=== PATIENT | male | born 1965 | race African-American/Black ===

== ENCOUNTER 2018-10-17 12:10 | Inpatient (IN) | payer SELFPAY ==
[2018-10-17] MEDS ORDERED: NORMAL SALINE 1000 ML 1,000 ML IV ONE ×2 (12:27→14:16)
--- NOTE | 2018-10-17 12:28 | ER Document Report ---
ED Medical Screen (RME) - General Chief Complaint: Flu Symptoms Stated Complaint: SICK Time Seen by Provider: 10/17/18 12:26 Primary Care Provider: WENDI JASON [Primary Care Provider] - Follow up as needed TRAVEL OUTSIDE OF THE [place] IN LAST 30 DAYS: No - HPI Notes: 10/17/18 12:27 Diabetic on metformin nausea vomiting ongoing for the last 2 weeks patient is tachycardic in triage - Related Data Allergies/Adverse Reactions: No Known Allergies Allergy (Verified 10/17/18 12:12) Review of Systems - Review of Systems Gastrointestinal: Nausea, Vomiting Physical Exam - Vital signs Vitals: Temp Pulse Resp BP Pulse Ox 98.7 F 121 H 18 160/108 H 98 10/17/18 12:20 10/17/18 12:20 10/17/18 12:20 10/17/18 12:20 10/17/18 12:20 - Respiratory Respiratory status: No respiratory distress Chest status: Nontender - Cardiovascular Rhythm: Tachycardia Course - Vital Signs Vital signs: Temp Pulse Resp BP Pulse Ox 98.7 F 121 H 18 160/108 H 98 10/17/18 12:20 10/17/18 12:20 10/17/18 12:20 10/17/18 12:20 10/17/18 12:20 Doctor's Discharge - Discharge Referrals: WENDI JASON [Primary Care Provider] - Follow up as needed
[2018-10-17] MEDS ORDERED: ONDANSETRON HCL INJ/PF 4 MG/2 ML SDV IV ONE (13:21)
[2018-10-17 13:37] LABS: APPEARANCE,URINE CLEAR; BILIRUBIN,URINE NEGATIVE (NEGATIVE); COLOR,URINE STRAW; GLUCOSE, URINE >=500 mg/dL (NEGATIVE); KETONES,URINE 80 mg/dL (NEGATIVE); LEUKOCYTE ESTERASE,URINE NEGATIVE (NEGATIVE); NITRITE,URINE NEGATIVE (NEGATIVE); PROTEIN,URINE NEGATIVE (NEGATIVE); URINE SPECIFIC GRAVITY 1.027; UROBILINOGEN,URINE NEGATIVE mg/dL (<2.0)
[2018-10-17 13:49] LABS: ABSOLUTE BASOPHILS # (AUTO) 0.1 10^3/uL (0.0-0.2); ABSOLUTE LYMPHOCYTES (AUTO) 1.1 10^3/uL (0.5-4.7); ABSOLUTE MONOCYTES (AUTO) 0.5 10^3/uL (0.1-1.4); ABSOLUTE NEUT (AUTO) 6.3 10^3/uL (1.7-8.2); BASOPHILS % (AUTO) 0.9 % (0-2); EOSINOPHILS % (AUTO) 0.4 % (0-6); HEMATOCRIT 49.6 % (37.9-51.0); LYMPHOCYTES % (AUTO) 13.7 % (13-45); MEAN CORPUSCULAR HEMOGLOBIN 27.6 pg (27.0-33.4); MEAN CORPUSCULAR HGB CONC 32.3 g/dL (32.0-36.0); MEAN CORPUSCULAR VOLUME 86 fl (80-97); MONOCYTES % (AUTO) 5.8 % (3-13); PLATELET COUNT 273 10^3/uL (150-450); SEGMENTED NEUTROPHILS % (AUTO) 79.2 % (42-78); TOTAL CELLS COUNTED % (AUTO) 100 %
[2018-10-17 13:57] LABS: ALANINE AMINOTRANSFERASE 42 U/L (21-72); ALKALINE PHOSPHATASE 156 U/L (38-126); ASPARTATE AMINO TRANSFERASE 21 U/L (17-59); BILIRUBIN,DIRECT 0.2 mg/dL (0.0-0.4); BILIRUBIN,TOTAL 0.5 mg/dL (0.2-1.3); BLOOD UREA NITROGEN 28 mg/dL (7-20); LIPASE 431.8 U/L (23-300); TOTAL PROTEIN 7.8 g/dL (6.3-8.2)
[2018-10-17 14:01] LABS: CARBON DIOXIDE 18 mmol/L (22-30); CHLORIDE 93 mmol/L (98-107); SODIUM 135.8 mmol/L (137-145)
[2018-10-17 14:07] LABS: ALCOHOL < 10 mg/dL (NONE DETECTED); ANION GAP 25 (5-19)
[2018-10-17 14:14] LABS: GLUCOSE 933 mg/dL (75-110); POTASSIUM 6.9 mmol/L (3.6-5.0)
[2018-10-17] MEDS ORDERED: INSULIN REG, HUMAN 100 UNIT/ML 3 ML VIAL (PYX) IV ONE (14:16)
[2018-10-17 14:17] LABS: VENOUS BLOOD BASE EXCESS -10.9 mmol/L; VENOUS BLOOD HCO3 14.2 mmol/L (20-32); VENOUS BLOOD PCO2 30.2 mmHg (35-63); VENOUS BLOOD PH 7.29 (7.30-7.42)
--- NOTE | 2018-10-17 15:20 | ER Document Report ---
Entered by AMIRAH CARRILLO SCRIBE 10/17/18 1401 Acting as scribe for:BRENDA BELTRAN DO ED General - General Chief Complaint: Flu Symptoms Stated Complaint: SICK Time Seen by Provider: 10/17/18 12:26 Information source: Patient Notes: 53-year-old male who presents to the emergency department today with complaints of blood glucose levels reading high at home, vomiting, and diaphoresis. Patie nt states that he takes 500 mg of metformin daily. Patient states he does not take his blood sugar regularly but the last time he got a reading other than high was 3-4 weeks ago and it was 280. Patient states he has been vomiting for 3 days. Patient denies a history of CO or CVA. Patient denies any fevers, chills, confusion, chest pain, or shortness of breath. TRAVEL OUTSIDE OF THE [place] IN LAST 30 DAYS: No - Related Data Allergies/Adverse Reactions: No Known Allergies Allergy (Verified 10/17/18 12:12) Past Medical History - General Information source: Patient - Social History Smoking Status: Former Smoker - "quit x2 weeks ago" Frequency of alcohol use: Occasional Drug Abuse: Marijuana Family History: DM Patient has suicidal ideation: No Patient has homicidal ideation: No Endocrine Medical History: Reports: Hx Diabetes Mellitus Type 2 Review of Systems - Review of Systems Constitutional: See HPI, Diaphoresis, Other - elevated BGL. denies: Chills, Fever EENT: No symptoms reported Cardiovascular: denies: Chest pain Respiratory: denies: Short of breath Gastrointestinal: See HPI, Vomiting. denies: Abdominal pain Genitourinary: No symptoms reported Male Genitourinary: No symptoms reported Musculoskeletal: No symptoms reported Skin: No symptoms reported Hematologic/Lymphatic: No symptoms reported Neurological/Psychological: denies: Confusion -: Yes All other systems reviewed and negative Physical Exam - Vital signs Vitals: Temp Pulse Resp BP Pulse Ox 98.7 F 121 H 18 160/108 H 98 10/17/18 12:20 10/17/18 12:20 10/17/18 12:20 10/17/18 12:20 10/17/18 12:20 Interpretation: Hypertensive, Tachycardic - Notes Notes: PHYSICAL EXAM GENERAL: Alert, interacts well. No acute distress. HEAD: Normocephalic, atraumatic. EYES: Pupils equal, round, and reactive to light. Extraocular movements intact. ENT: Oral mucosa moist, tongue midline. NECK: Full range of motion. Supple. Trachea midline. LUNGS: Clear to auscultation bilaterally, no wheezes, rales, or rhonchi. No respiratory distress. HEART: Tachycardic, regular rhythm. No murmurs, gallops, or rubs. ABDOMEN: Soft, non-tender. Non-distended. Bowel sounds present in all 4 quadrants. No guarding, rigidity, or rebound. EXTREMITIES: Moves all 4 extremities spontaneously. No edema, radial and dorsalis pedis pulses 2/4 bilaterally. No cyanosis. NEUROLOGICAL: Alert and oriented x3. Normal speech. Did not know what confusion meant. PSYCH: Normal affect, normal mood. SKIN: Warm, dry, normal turgor. No rashes or lesions noted. Course - Re-evaluation Re-evalutation: 10/17/18 17:21 CBC unremarkable, venous blood gas is acidotic with a pH of 7.29, chemistries shows pseudohyponatremia with sodium 135.8, potassium quite elevated 6.9, there is an anion gap at 25, glucose markedly elevated at 933, lactic acid normal, calcium elevated at 11.0, lipase mildly elevated at 431, urinalysis shows greater than 500 of glucose and 80 ketones. Alcohol level is undetectable. EKG shows peaked T waves consistent with elevated potassium. Patient fits criteria for DKA. He is certainly in hyperglycemic state that will be needed to be treated with fluids as well as insulin. At present I believe his potassium is going to normalize quite well with IV insulin and hydration however internal medicine will keep an eye on this as an inpatient. There is no widening of the QRS at this time. We will hold off on giving Kayexalate at this time. Discussed the case with internal medicine Dr. Medina who accepts the patient to his service in admission status. - Vital Signs Vital signs: Temp Pulse Resp BP Pulse Ox 98.7 F 121 H 11 L 131/89 H 96 10/17/18 12:20 10/17/18 12:20 10/17/18 17:01 10/17/18 17:01 10/17/18 17:01 - Laboratory Result Diagrams: 10/17/18 12:35 10/17/18 12:35 Laboratory results interpreted by me: 10/17/18 10/17/18 10/17/18 12:35 12:35 12:35 RBC 5.80 H RDW 15.0 H Seg Neutrophils % 79.2 H VBG pH VBG pCO2 VBG HCO3 Sodium 135.8 L Potassium 6.9 H* Chloride 93 L Carbon Dioxide 18 L Anion Gap 25 H BUN 28 H Glucose 933 H* Hemoglobin A1c % Calcium 11.0 H Alkaline Phosphatase 156 H Lipase 431.8 H Urine Glucose (UA) >=500 H Urine Ketones 80 H 10/17/18 10/17/18 12:35 14:00 RBC RDW Seg Neutrophils % VBG pH 7.29 L VBG pCO2 30.2 L VBG HCO3 14.2 L Sodium Potassium Chloride Carbon Dioxide Anion Gap BUN Glucose Hemoglobin A1c % > 14.0 H Calcium Alkaline Phosphatase Lipase Urine Glucose (UA) Urine Ketones - EKG Interpretation by Me Additional EKG results interpreted by me: 10/17/18 17:23 EKG shows sinus tachycardia at a rate of 102, normal axis, normal intervals, mild diffuse ST segment elevation that I actually feels more likely related to rate than to pericarditis, peaked T waves, no T wave inversions with the exception of lead III per my interpretation. 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 Diabetes mellitus complication detail: without coma Qualified Code(s): E11.10 - Type 2 di abetes mellitus with ketoacidosis without coma Vomiting Qualifiers: Vomiting type: unspecified Vomiting Intractability: non-intractable Nausea presence: with nausea Qualified Code(s): R11.2 - Nausea with vomiting, unspecified Condition: Critical Disposition: ADMITTED INPATIENT [facility]: ICU Scribe Attestation: 10/17/18 17:23 I personally performed the services described in the documentation, reviewed and edited the documentation which was dictated to the scribe in my presence, and it accurately records my words and actions. I personally performed the services described in the documentation, reviewed and edited the documentation which was dictated to the scribe in my presence, and it accurately records my words and actions.
[2018-10-17] MEDS ORDERED: NORMAL SALINE 100 ML with INSULIN REGULAR, HUMAN 100 UNIT IV PRN ×4 (15:25→15:35)
[2018-10-17] MEDS ORDERED: ONDANSETRON HCL INJ/PF 4 MG/2 ML SDV IV PRN (15:31)
[2018-10-17] MEDS ORDERED: DEXTROSE 40% GEL 15 GM TUBE PO PRN ×4 (15:35→18:30)
[2018-10-17] MEDS ORDERED: GLUCAGON,HUMAN RECOMB 1 MG INJ IM PRN ×3 (15:35→18:30)
[2018-10-17] MEDS ORDERED: DEXTROSE 50%-WATER 25 GM/50 ML DISP.SYRIN IV PRN ×2 (15:35)
--- NOTE | 2018-10-17 15:58 | PDOC H&P ---
History of Present Illness History of Present Illness: BEATRIZ ZACARIAS is a 53 year old male who has history of diabetes and takes 500 mg metformin. Patient presents emergency room due to acute onset of generalized weakness, polydipsia, polyuria, nausea vomiting and nonspecific abdominal pain. This started about 2 weeks ago and has been progressive. He also suffered several pounds weight loss. In the emergency room his glucose was 933. PH was 7.29, anion gap 25 and bicarb is 18. Patient started on insulin drip and IV fluids. His potassium was also elevated at 6.9. Past Medical History Endocrine Medical History: Reports: Diabetes Mellitus Type 2 Past Surgical History Past Surgical History: Reports: None Social History Smoking Status: Former Smoker - "quit x2 weeks ago" Family History Family History: DM Parental Family History Reviewed: Yes Children Family History Reviewed: NA Sibling(s) Family History Reviewed.: NA Medication/Allergy Home Medications: Metformin HCl [Glucophage 500 mg Tablet] 500 mg PO BIDBS 10/17/18 Allergies/Adverse Reactions: No Known Allergies Allergy (Verified 10/17/18 12:12) Review of Systems All systems: reviewed and no additional remarkable complaints except as stated Physical Exam Vital Signs: Temp Pulse Resp BP Pulse Ox 98.7 F 121 H 15 168/100 H 97 10/17/18 12:20 10/17/18 12:20 10/17/18 15:21 10/17/18 15:21 10/17/18 15:21 Intake & Output 10/16/18 10/17/18 10/18/18 06:59 06:59 06:59 Weight 169 lb 1.513 oz General appearance: PRESENT: no acute distress, cooperative Head exam: PRESENT: atraumatic, normocephalic Eye exam: PRESENT: EOMI, PERRLA Ear exam: ABSENT: bleeding, drainage Mouth exam: PRESENT: moist, neck supple Throat exam: ABSENT: tonsillar exudate, tonsillogmegaly Neck exam: ABSENT: meningismus, tenderness Respiratory exam: PRESENT: clear to auscultation jeannine. ABSENT: accessory muscle use Cardiovascular exam: PRESENT: tachycardia. ABSENT: irregular rhythm Pulses: PRESENT: normal radial pulses GI/Abdominal exam: PRESENT: normal bowel sounds, soft Rectal exam: PRESENT: deferred Extremities exam: ABSENT: joint swelling, pedal edema Musculoskeletal exam: ABSENT: deformity Neurological exam: PRESENT: alert, awake, oriented to person, oriented to place, oriented to time, oriented to situation Focused psych exam: ABSENT: catatonic, delusional, euphoric, flight of ideas, pressured speech, psychomotor agitation Skin exam: PRESENT: dry, intact Results Laboratory Results: 10/17/18 12:35 10/17/18 12:35 10/17/18 10/17/18 10/17/18 12:35 12:35 12:35 WBC 8.0 RBC 5.80 H Hgb 16.0 Hct 49.6 MCV 86 MCH 27.6 MCHC 32.3 RDW 15.0 H Plt Count 273 Seg Neutrophils % 79.2 H Lymphocytes % 13.7 Monocytes % 5.8 Eosinophils % 0.4 Basophils % 0.9 Absolute Neutrophils 6.3 Absolute Lymphocytes 1.1 Absolute Monocytes 0.5 Absolute Eosinophils 0.0 Absolute Basophils 0.1 VBG pH Cancelled VBG pCO2 Cancelled VBG HCO3 Cancelled VBG Base Excess Cancelled Sodium 135.8 L Potassium 6.9 H* Chloride 93 L Carbon Dioxide 18 L Anion Gap 25 H BUN 28 H Creatinine 1.24 Est GFR ( Amer) > 60 Est GFR (Non-Af Amer) > 60 Glucose 933 H* Lactic Acid Calcium 11.0 H Total Bilirubin 0.5 AST 21 ALT 42 Alkaline Phosphatase 156 H Total Protein 7.8 Albumin 5.0 Lipase 431.8 H Urine Color Urine Appearance Urine pH Ur Specific [place] Urine Protein Urine Glucose (UA) Urine Ketones Urine Blood Urine Nitrite Ur Leukocyte Esterase Urine WBC (Auto) Urine RBC (Auto) 10/17/18 10/17/18 10/17/18 12:35 12:35 14:00 WBC RBC Hgb Hct MCV MCH MCHC RDW Plt Count Seg Neutrophils % Lymphocytes % Monocytes % Eosinophils % Basophils % Absolute Neutrophils Absolute Lymphocytes Absolute Monocytes Absolute Eosinophils Absolute Basophils VBG pH 7.29 L VBG pCO2 30.2 L VBG HCO3 14.2 L VBG Base Excess -10.9 Sodium Potassium Chloride Carbon Dioxide Anion Gap BUN Creatinine Est GFR ( Amer) Est GFR (Non-Af Amer) Glucose Lactic Acid 1.2 Calcium Total Bilirubin AST ALT Alkaline Phosphatase Total Protein Albumin Lipase Urine Color STRAW Urine Appearance CLEAR Urine pH 5.0 Ur Specific [place] 1.027 Urine Protein NEGATIVE Urine Glucose (UA) >=500 H Urine Ketones 80 H Urine Blood NEGATIVE Urine Nitrite NEGATIVE Ur Leukocyte Esterase NEGATIVE Urine WBC (Auto) 1 Urine RBC (Auto) 0 Assessment & Plan - Diagnosis (1) DKA (diabetic ketoacidoses) Is this a current diagnosis for this admission?: Yes Plan: Admit to ICU. IV fluid normal saline 200 mL/h. Start insulin drip. Check chemistry every 4 hours. Check glucose levels Accu-Chek every hour. A1c. (2) Sinus tachycardia Is this a current diagnosis for this admission?: Yes Plan: Likely due to dehydration and DKA. Monitor telemetry. (3) Hyperkalemia Is this a current diagnosis for this admission?: Yes Plan: Due to DKA. Monitor potassium levels every 4 hours. Admit to telemetry ICU. (4) Vomiting Is this a current diagnosis for this admission?: Yes Plan: Zofran IV as needed. Keep n.p.o. for now. - Time Time Spent with patient: 35 minutes critical care time.
[2018-10-17] MEDS: NORMAL SALINE 1000 ML 1,000 ML IV PRN ×2 (16:13→21:15)
[2018-10-17] MEDS ORDERED: MORPHINE SULFATE 10 MG/ML INJ IV PRN (16:21)
[2018-10-17] MEDS ORDERED: INSULIN, REGULAR 100 UNIT/100 ML NORMAL SALINE IV PRN ×2 (17:00)
[2018-10-17] MEDS ORDERED: DEXTROSE 40% GEL 15 GM TUBE X 2 PO PRN ×2 (17:00→18:30)
[2018-10-17] MEDS ORDERED: DEXTROSE 50%-WATER SYRINGE 12.5 GM/25 ML DOSE IV PRN ×2 (17:00→18:30)
[2018-10-17] MEDS ORDERED: DEXTROSE 50%-WATER SYRINGE 25 GM/50 ML DOSE IV PRN ×2 (17:00→18:30)
--- NOTE | 2018-10-17 17:51 | EKG REPORT ---
SEVERITY:- ABNORMAL ECG - SINUS TACHYCARDIA ST ELEVATION SUGGESTS PERICARDITIS : Confirmed by: Alejandro Hankins MD 17-Oct-2018 17:50:55
[2018-10-17] MEDS ORDERED: INSULIN GLARGINE,HUM.REC.ANLOG 1,000 UNIT/10 ML UNIT SUBCUT ONE ×2 (18:15→20:18)
[2018-10-17 18:44] LABS: ANION GAP 17 (5-19); BLOOD UREA NITROGEN 22 mg/dL (7-20); CALCIUM 10.1 mg/dL (8.4-10.2); CARBON DIOXIDE 19 mmol/L (22-30); CHLORIDE 109 mmol/L (98-107); GLUCOSE 393 mg/dL (75-110); SODIUM 145.4 mmol/L (137-145)
[2018-10-17 18:55] LABS: POTASSIUM 5.3 mmol/L (3.6-5.0)
[2018-10-17] MEDS ORDERED: INSULIN LISPRO 100 UNIT/ML 3 ML VIAL SUBCUT ONE (19:15)
[2018-10-17 22:30] LABS: ANION GAP 15 (5-19); BLOOD UREA NITROGEN 20 mg/dL (7-20); CALCIUM 10.1 mg/dL (8.4-10.2); CARBON DIOXIDE 23 mmol/L (22-30); CHLORIDE 110 mmol/L (98-107); GLUCOSE 295 mg/dL (75-110); POTASSIUM 4.8 mmol/L (3.6-5.0); SODIUM 147.5 mmol/L (137-145)
[2018-10-17] MEDS: INSULIN LISPRO 100 UNIT/ML 3 ML VIAL SUBCUT SCH (23:26)
[2018-10-17] MEDS: FAMOTIDINE INJ/PF 20 MG/2 ML SDV IV SCH (23:26)
[2018-10-18 02:19] LABS: ANION GAP 10 (5-19); BLOOD UREA NITROGEN 16 mg/dL (7-20); CALCIUM 9.3 mg/dL (8.4-10.2); CARBON DIOXIDE 23 mmol/L (22-30); CHLORIDE 115 mmol/L (98-107); GLUCOSE 221 mg/dL (75-110); POTASSIUM 4.4 mmol/L (3.6-5.0); SODIUM 148.4 mmol/L (137-145)
[2018-10-18] MEDS: NORMAL SALINE 1000 ML 1,000 ML IV PRN ×2 (02:38→15:13)
[2018-10-18] MEDS: INSULIN LISPRO 100 UNIT/ML 3 ML VIAL SUBCUT SCH ×6 (02:39→21:43)
[2018-10-18 06:37] LABS: ANION GAP 9 (5-19); BLOOD UREA NITROGEN 15 mg/dL (7-20); CALCIUM 9.2 mg/dL (8.4-10.2); CARBON DIOXIDE 23 mmol/L (22-30); CHLORIDE 114 mmol/L (98-107); GLUCOSE 214 mg/dL (75-110); POTASSIUM 4.3 mmol/L (3.6-5.0); TRIGLYCERIDES 302 mg/dL (<150)
[2018-10-18 06:47] LABS: VLDL CHOLESTEROL 60.4 mg/dL (10-31)
[2018-10-18 06:48] LABS: DIRECT LDL 160 mg/dL (<100)
[2018-10-18] MEDS: FAMOTIDINE INJ/PF 20 MG/2 ML SDV IV SCH ×2 (11:18→21:36)
[2018-10-18] MEDS: ENOXAPARIN SODIUM INJ 40 MG/0.4 ML DISP.SYRIN SUBCUT SCH (11:18)
[2018-10-18 11:59] LABS: ANION GAP 12 (5-19); BLOOD UREA NITROGEN 13 mg/dL (7-20); CALCIUM 9.6 mg/dL (8.4-10.2); CARBON DIOXIDE 21 mmol/L (22-30); CHLORIDE 108 mmol/L (98-107); GLUCOSE 355 mg/dL (75-110); POTASSIUM 4.9 mmol/L (3.6-5.0); SODIUM 141.4 mmol/L (137-145)
[2018-10-18 15:36] LABS: ANION GAP 9 (5-19); BLOOD UREA NITROGEN 16 mg/dL (7-20); CALCIUM 9.3 mg/dL (8.4-10.2); CARBON DIOXIDE 24 mmol/L (22-30); CHLORIDE 108 mmol/L (98-107); GLUCOSE 352 mg/dL (75-110); POTASSIUM 4.6 mmol/L (3.6-5.0); SODIUM 140.7 mmol/L (137-145)
[2018-10-18] MEDS ORDERED: GLUCAGON,HUMAN RECOMB 1 MG INJ IM PRN (16:50)
[2018-10-18] MEDS ORDERED: DEXTROSE 40% GEL 15 GM TUBE PO PRN ×2 (16:50)
[2018-10-18] MEDS ORDERED: DEXTROSE 50%-WATER 25 GM/50 ML DISP.SYRIN IV PRN ×2 (16:50)
[2018-10-18] MEDS ORDERED: INSULIN GLARGINE,HUM.REC.ANLOG 300 UNIT/3 ML INSULN.PEN SUBCUT SCH ×2 (18:00→22:00)
--- NOTE | 2018-10-18 20:05 | PDOC PROGRESS REPORT ---
Subjective Progress Note for:: 10/18/18 Subjective:: No acute events overnight. Patient comfortably sitting in his chair enjoying his lunch. Denying any shortness of breath, weakness, chest pain, nausea, vomiting, diarrhea or constipation. Reason For Visit: DKA Physical Exam Vital Signs: Temp Pulse Resp BP Pulse Ox 98.1 F 90 11 L 142/88 H 90 L 10/18/18 19:46 10/18/18 16:00 10/18/18 16:00 10/18/18 16:00 10/18/18 16:00 Intake & Output 10/17/18 10/18/18 10/19/18 06:59 06:59 06:59 Intake Total 4007 1940 Output Total 1570 600 Balance 2437 1340 Weight 75.4 kg General appearance: PRESENT: no acute distress, well-developed, well-nourished Head exam: PRESENT: atraumatic, normocephalic Eye exam: PRESENT: conjunctiva pink, EOMI, PERRLA. ABSENT: scleral icterus Ear exam: PRESENT: normal external ear exam Mouth exam: PRESENT: moist, tongue midline Neck exam: ABSENT: carotid bruit, JVD, lymphadenopathy, thyromegaly Respiratory exam: PRESENT: clear to auscultation jeannine. ABSENT: rales, rhonchi, wheezes Cardiovascular exam: PRESENT: RRR. ABSENT: diastolic murmur, rubs, systolic murmur Pulses: PRESENT: normal dorsalis pedis pul Vascular exam: PRESENT: normal capillary refill GI/Abdominal exam: PRESENT: normal bowel sounds, soft. ABSENT: distended, guarding, mass, organolmegaly, rebound, tenderness Rectal exam: PRESENT: deferred Extremities exam: PRESENT: full ROM. ABSENT: calf tenderness, clubbing, pedal edema Neurological exam: PRESENT: alert, awake, oriented to person, oriented to place, oriented to time, oriented to situation, CN II-XII grossly intact. ABSENT: motor sensory deficit Psychiatric exam: PRESENT: appropriate affect, normal mood. ABSENT: homicidal ideation, suicidal ideation Skin exam: PRESENT: dry, intact, warm. ABSENT: cyanosis, rash Results Laboratory Results: 10/17/18 12:35 10/18/18 15:00 10/17/18 10/18/18 10/18/18 22:00 01:56 06:08 Sodium 147.5 H 148.4 H 146.0 H Potassium 4.8 4.4 4.3 Chloride 110 H 115 H 114 H Carbon Dioxide 23 23 23 Anion Gap 15 10 9 BUN 20 16 15 Creatinine 1.07 0.78 0.77 Est GFR ( Amer) > 60 > 60 > 60 Est GFR (Non-Af Amer) > 60 > 60 > 60 Glucose 295 H 221 H 214 H Calcium 10.1 9.3 9.2 Magnesium 2.1 Triglycerides 302 H Cholesterol 353.70 H LDL Cholesterol Direct 160 H VLDL Cholesterol 60.4 H HDL Cholesterol 38 L 10/18/18 10/18/18 11:20 15:00 Sodium 141.4 140.7 Potassium 4.9 4.6 Chloride 108 H 108 H Carbon Dioxide 21 L 24 Anion Gap 12 9 BUN 13 16 Creatinine 0.80 0.98 Est GFR ( Amer) > 60 > 60 Est GFR (Non-Af Amer) > 60 > 60 Glucose 355 H 352 H Calcium 9.6 9.3 Magnesium Triglycerides Cholesterol LDL Cholesterol Direct VLDL Cholesterol HDL Cholesterol Assessment & Plan - Diagnosis (1) DKA (diabetic ketoacidoses) Is this a current diagnosis for this admission?: Yes Plan: Started on DKA protocol. Anion gap 9. Switched to subcutaneous insulin. (2) Hyperlipidemia Is this a current diagnosis for this admission?: Yes Plan: High intensity statins. Follow-up with PCP (3) Diabetes Is this a current diagnosis for this admission?: Yes Plan: Accu-Chek, diabetic diet, long-acting insulin, pre-meal insulin, sliding scale insulin. Will adjust dosage as needed. Diabetic education.
[2018-10-18] MEDS: ATORVASTATIN CALCIUM 40 MG TABLET PO SCH (21:29)
[2018-10-19] MEDS: NORMAL SALINE 1000 ML 1,000 ML IV PRN (01:29)
[2018-10-19 04:18] LABS: HEMATOCRIT 37.6 % (37.9-51.0); MEAN CORPUSCULAR HEMOGLOBIN 27.4 pg (27.0-33.4); MEAN CORPUSCULAR HGB CONC 33.7 g/dL (32.0-36.0); PLATELET COUNT 197 10^3/uL (150-450); RED BLOOD COUNT 4.61 10^6/uL (4.35-5.55); RED CELL DISTRIBUTION WIDTH 14.3 % (11.5-14.0); WHITE BLOOD COUNT 6.7 10^3/uL (4.0-10.5)
[2018-10-19 04:28] LABS: ALANINE AMINOTRANSFERASE 33 U/L (21-72); ALKALINE PHOSPHATASE 87 U/L (38-126); ANION GAP 8 (5-19); ASPARTATE AMINO TRANSFERASE 19 U/L (17-59); BILIRUBIN,DIRECT 0.2 mg/dL (0.0-0.4); BILIRUBIN,TOTAL 0.4 mg/dL (0.2-1.3); BLOOD UREA NITROGEN 11 mg/dL (7-20); CARBON DIOXIDE 22 mmol/L (22-30); CHLORIDE 109 mmol/L (98-107); GLUCOSE 256 mg/dL (75-110); SODIUM 139.4 mmol/L (137-145); TOTAL PROTEIN 5.3 g/dL (6.3-8.2)
[2018-10-19 04:29] LABS: HEMOGLOBIN 12.7 g/dL (13.5-17.0); MEAN CORPUSCULAR VOLUME 81 fl (80-97)
[2018-10-19 04:42] LABS: POTASSIUM 3.6 mmol/L (3.6-5.0)
[2018-10-19] MEDS: INSULIN LISPRO 100 UNIT/ML 3 ML VIAL SUBCUT SCH ×6 (08:31→21:03)
[2018-10-19] MEDS ORDERED: GLUCAGON,HUMAN RECOMB 1 MG INJ IM PRN (11:21)
[2018-10-19] MEDS ORDERED: DEXTROSE 40% GEL 15 GM TUBE PO PRN ×2 (11:21)
[2018-10-19] MEDS ORDERED: DEXTROSE 50%-WATER 25 GM/50 ML DISP.SYRIN IV PRN ×2 (11:21)
[2018-10-19] MEDS: ENOXAPARIN SODIUM INJ 40 MG/0.4 ML DISP.SYRIN SUBCUT SCH (11:46)
[2018-10-19] MEDS: FAMOTIDINE INJ/PF 20 MG/2 ML SDV IV SCH ×2 (11:47→21:01)
[2018-10-19] MEDS: HUM INSULIN NPH/REG INSULIN HM 100 UNIT/1 ML 3 ML SUBCUT SCH (16:31)
--- NOTE | 2018-10-19 18:33 | PDOC PROGRESS REPORT ---
Subjective Progress Note for:: 10/19/18 Subjective:: Cute events overnight. Alert oriented x3. Ambulatory, p.o. tolerant and having normal bowel and bladder movements. Denies any fever, chills, nausea, vomiting, diarrhea, constipation or any urinary symptoms. He had diabetic education today and was switched to 7030 insulin of Lantus as patient will not be able to afford buying his insulin. Reason For Visit: DKA Physical Exam Vital Signs: Temp Pulse Resp BP Pulse Ox 98.3 F 88 12 154/93 H 96 10/19/18 16:00 10/19/18 16:00 10/19/18 16:00 10/19/18 16:00 10/19/18 16:00 Intake & Output 10/18/18 10/19/18 10/20/18 06:59 06:59 06:59 Intake Total 4007 3180 600 Output Total 1570 1250 620 Balance 2437 1930 -20 Weight 75.4 kg 81.6 kg General appearance: PRESENT: no acute distress, well-developed, well-nourished Head exam: PRESENT: atraumatic, normocephalic Eye exam: PRESENT: conjunctiva pink, EOMI, PERRLA. ABSENT: scleral icterus Ear exam: PRESENT: normal external ear exam Mouth exam: PRESENT: moist, tongue midline Neck exam: ABSENT: carotid bruit, JVD, lymphadenopathy, thyromegaly Respiratory exam: PRESENT: clear to auscultation jeannine. ABSENT: rales, rhonchi, wheezes Cardiovascular exam: PRESENT: RRR. ABSENT: diastolic murmur, rubs, systolic murmur Pulses: PRESENT: normal dorsalis pedis pul Vascular exam: PRESENT: normal capillary refill GI/Abdominal exam: PRESENT: normal bowel sounds, soft. ABSENT: distended, guarding, mass, organolmegaly, rebound, tenderness Rectal exam: PRESENT: deferred Extremities exam: PRESENT: full ROM. ABSENT: calf tenderness, clubbing, pedal edema Neurological exam: PRESENT: alert, awake, oriented to person, oriented to place, oriented to time, oriented to situation, CN II-XII grossly intact. ABSENT: motor sensory deficit Psychiatric exam: PRESENT: appropriate affect, normal mood. ABSENT: homicidal ideation, suicidal ideation Skin exam: PRESENT: dry, intact, warm. ABSENT: cyanosis, rash Results Laboratory Results: 10/19/18 03:49 10/19/18 03:49 10/19/18 10/19/18 03:49 03:49 WBC 6.7 RBC 4.61 Hgb 12.7 L D Hct 37.6 L MCV 81 D MCH 27.4 MCHC 33.7 RDW 14.3 H Plt Count 197 Sodium 139.4 Potassium 3.6 D Chloride 109 H Carbon Dioxide 22 Anion Gap 8 BUN 11 Creatinine 0.66 Est GFR ( Amer) > 60 Est GFR (Non-Af Amer) > 60 Glucose 256 H Calcium 9.0 Magnesium 1.8 Total Bilirubin 0.4 AST 19 ALT 33 Alkaline Phosphatase 87 Total Protein 5.3 L Albumin 3.0 L Assessment & Plan - Diagnosis (1) Hyperlipidemia Is this a current diagnosis for this admission?: Yes Plan: High intensity statins. Follow-up with PCP (2) Diabetes Is this a current diagnosis for this admission?: Yes Plan: Accu-Chek, diabetic diet, long-acting insulin, pre-meal insulin, sliding scale insulin. Will adjust dosage as needed. Diabetic education. (3) DKA (diabetic ketoacidoses) Is this a current diagnosis for this admission?: Yes Plan: Resolved. Started on DKA protocol. Anion gap 9. Switched to subcutaneous insulin. (4) HTN (hypertension) Is this a current diagnosis for this admission?: Yes Plan: Start on amlodipine 5 mg. Monitor vitals. Adjust dosage as needed.
[2018-10-19] MEDS: AMLODIPINE BESYLATE 5 MG TABLET PO SCH (20:44)
[2018-10-19] MEDS ORDERED: AMLODIPINE BESYLATE 5 MG TABLET PO ONE (21:00)
[2018-10-19] MEDS: ATORVASTATIN CALCIUM 40 MG TABLET PO SCH (21:01)
[2018-10-20 05:07] LABS: ABSOLUTE BASOPHILS # (AUTO) 0.1 10^3/uL (0.0-0.2); ABSOLUTE EOSINOPHILS # (AUTO) 0.3 10^3/uL (0.0-0.6); ABSOLUTE LYMPHOCYTES (AUTO) 2.6 10^3/uL (0.5-4.7); ABSOLUTE MONOCYTES (AUTO) 0.5 10^3/uL (0.1-1.4); ABSOLUTE NEUT (AUTO) 3.7 10^3/uL (1.7-8.2); BASOPHILS % (AUTO) 0.8 % (0-2); EOSINOPHILS % (AUTO) 3.6 % (0-6); HEMATOCRIT 35.6 % (37.9-51.0); HEMOGLOBIN 12.3 g/dL (13.5-17.0); LYMPHOCYTES % (AUTO) 36.3 % (13-45); MEAN CORPUSCULAR HEMOGLOBIN 27.7 pg (27.0-33.4); MEAN CORPUSCULAR HGB CONC 34.5 g/dL (32.0-36.0); MEAN CORPUSCULAR VOLUME 80 fl (80-97); MONOCYTES % (AUTO) 6.9 % (3-13); PLATELET COUNT 184 10^3/uL (150-450); RED BLOOD COUNT 4.44 10^6/uL (4.35-5.55); RED CELL DISTRIBUTION WIDTH 14.1 % (11.5-14.0); SEGMENTED NEUTROPHILS % (AUTO) 52.4 % (42-78); TOTAL CELLS COUNTED % (AUTO) 100 %; WHITE BLOOD COUNT 7.1 10^3/uL (4.0-10.5)
[2018-10-20 05:44] LABS: ALANINE AMINOTRANSFERASE 38 U/L (21-72); ALBUMIN 2.9 g/dL (3.5-5.0); ALKALINE PHOSPHATASE 84 U/L (38-126); ANION GAP 6 (5-19); ASPARTATE AMINO TRANSFERASE 24 U/L (17-59); BILIRUBIN,DIRECT 0.2 mg/dL (0.0-0.4); BILIRUBIN,TOTAL 0.6 mg/dL (0.2-1.3); BLOOD UREA NITROGEN 11 mg/dL (7-20); CARBON DIOXIDE 25 mmol/L (22-30); CHLORIDE 106 mmol/L (98-107); GLUCOSE 208 mg/dL (75-110); POTASSIUM 3.7 mmol/L (3.6-5.0); SODIUM 136.9 mmol/L (137-145); TOTAL PROTEIN 5.1 g/dL (6.3-8.2)
[2018-10-20] MEDS: INSULIN LISPRO 100 UNIT/ML 3 ML VIAL SUBCUT SCH ×4 (08:48→21:23)
[2018-10-20] MEDS: HUM INSULIN NPH/REG INSULIN HM 100 UNIT/1 ML 3 ML SUBCUT SCH ×2 (08:48→17:04)
[2018-10-20] MEDS: AMLODIPINE BESYLATE 5 MG TABLET PO SCH (09:37)
[2018-10-20] MEDS: FAMOTIDINE INJ/PF 20 MG/2 ML SDV IV SCH ×2 (09:37→21:23)
[2018-10-20] MEDS: ENOXAPARIN SODIUM INJ 40 MG/0.4 ML DISP.SYRIN SUBCUT SCH (09:37)
[2018-10-20] MEDS ORDERED: DEXTROSE 50%-WATER 25 GM/50 ML DISP.SYRIN IV PRN ×2 (11:01)
[2018-10-20] MEDS ORDERED: GLUCAGON,HUMAN RECOMB 1 MG INJ IM PRN (11:01)
[2018-10-20] MEDS ORDERED: DEXTROSE 40% GEL 15 GM TUBE PO PRN ×2 (11:01)
--- NOTE | 2018-10-20 16:48 | PDOC PROGRESS REPORT ---
Subjective Progress Note for:: 10/20/18 Subjective:: No aute events overnight. Alert oriented x3. Ambulatory, p.o. tolerant and having normal bowel and bladder movements. Denies any fever, chills, nausea, vomiting, diarrhea, constipation or any urinary symptoms. He had diabetic education yesterday and was switched to 7030 insulin of Lantus as patient will not be able to afford buying his insulin. Reason For Visit: DKA Physical Exam Vital Signs: Temp Pulse Resp BP Pulse Ox 97.9 F 104 H 19 160/87 H 99 10/20/18 15:19 10/20/18 15:19 10/20/18 15:19 10/20/18 15:19 10/20/18 15:19 Intake & Output 10/19/18 10/20/18 10/21/18 06:59 06:59 06:59 Intake Total 3180 1080 Output Total 1250 620 Balance 1930 460 Weight 81.6 kg 81.6 kg General appearance: PRESENT: no acute distress, well-developed, well-nourished Head exam: PRESENT: atraumatic, normocephalic Respiratory exam: PRESENT: clear to auscultation jeannine. ABSENT: rales, rhonchi, wheezes Cardiovascular exam: PRESENT: RRR. ABSENT: diastolic murmur, rubs, systolic murmur GI/Abdominal exam: PRESENT: normal bowel sounds, soft. ABSENT: distended, guarding, mass, organolmegaly, rebound, tenderness Extremities exam: PRESENT: full ROM. ABSENT: calf tenderness, clubbing, pedal e gretel Neurological exam: PRESENT: alert, awake, oriented to person, oriented to place, oriented to time, oriented to situation, CN II-XII grossly intact. ABSENT: motor sensory deficit Results Laboratory Results: 10/20/18 04:26 10/20/18 04:26 10/20/18 10/20/18 04:26 04:26 WBC 7.1 RBC 4.44 Hgb 12.3 L Hct 35.6 L MCV 80 MCH 27.7 MCHC 34.5 RDW 14.1 H Plt Count 184 Seg Neutrophils % 52.4 Lymphocytes % 36.3 Monocytes % 6.9 Eosinophils % 3.6 Basophils % 0.8 Absolute Neutrophils 3.7 Absolute Lymphocytes 2.6 Absolute Monocytes 0.5 Absolute Eosinophils 0.3 Absolute Basophils 0.1 Sodium 136.9 L Potassium 3.7 Chloride 106 Carbon Dioxide 25 Anion Gap 6 BUN 11 Creatinine 0.67 Est GFR ( Amer) > 60 Est GFR (Non-Af Amer) > 60 Glucose 208 H Calcium 9.0 Magnesium 1.7 Total Bilirubin 0.6 AST 24 ALT 38 Alkaline Phosphatase 84 Total Protein 5.1 L Albumin 2.9 L Assessment & Plan - Diagnosis (1) Diabetes Is this a current diagnosis for this admission?: Yes Plan: Not controlled. He was switched to 70/30 will not be able to afford other forms of insulin. Accu-Chek, diabetic diet, sliding scale insulin. Will adjust dosage as needed. Diabetic education was provided. (2) Hyperlipidemia Is this a current diagnosis for this admission?: Yes Plan: High intensity statins. Follow-up with PCP (3) DKA (diabetic ketoacidoses) Is this a current diagnosis for this admission?: Yes Plan: Resolved. Started on DKA protocol. Anion gap 9. Switched to subcutaneous insulin. (4) HTN (hypertension) Is this a current diagnosis for this admission?: Yes Plan: Not optimized. Start on amlodipine 5 mg. Start on low-dose [place] adjust meds if needed.
[2018-10-20] MEDS: LISINOPRIL 10 MG TABLET PO SCH (17:18)
[2018-10-20] MEDS: ATORVASTATIN CALCIUM 40 MG TABLET PO SCH (21:23)
[2018-10-21] MEDS: INSULIN LISPRO 100 UNIT/ML 3 ML VIAL SUBCUT SCH ×3 (08:28→17:08)
[2018-10-21] MEDS: HUM INSULIN NPH/REG INSULIN HM 100 UNIT/1 ML 3 ML SUBCUT SCH ×2 (08:29→17:08)
[2018-10-21] MEDS: AMLODIPINE BESYLATE 5 MG TABLET PO SCH (09:44)
[2018-10-21] MEDS: ENOXAPARIN SODIUM INJ 40 MG/0.4 ML DISP.SYRIN SUBCUT SCH (09:44)
[2018-10-21] MEDS: LISINOPRIL 10 MG TABLET PO SCH (09:45)
[2018-10-21] MEDS: FAMOTIDINE INJ/PF 20 MG/2 ML SDV IV SCH (09:45)
[2018-10-21 17:25] VITALS: BP 128/68
--- NOTE | 2018-10-23 17:29 | PDOC DISCHARGE SUMMARY ---
General - Admit/Disc Date/PCP Admission Date/Primary Care Provider: 10/17/18 15:37 Discharge Date: 10/21/18 - Discharge Diagnosis (1) Diabetes Is this a current diagnosis for this admission?: Yes (2) Hyperlipidemia Is this a current diagnosis for this admission?: Yes (3) DKA (diabetic ketoacidoses) Is this a current diagnosis for this admission?: Yes (4) HTN (hypertension) Is this a current diagnosis for this admission?: Yes - Additional Information Resuscitation Status: Full Code Discharge Diet: As Tolerated Discharge Activity: Activity As Tolerated Prescriptions: Amlodipine Besylate [Norvasc 5 mg Tablet] 5 mg PO DAILY 30 Days #30 tablet Atorvastatin Calcium [Lipitor 40 mg Tablet] 40 mg PO QHS 30 Days #30 tablet Hum Insulin NPH/Reg Insulin Hm [Insulin 70-30 (NPH/Reg) 100 unit/mL] 26 unit SUBCUT BIDACBS 30 Days #5 unit Lisinopril [Prinivil 10 mg Tablet] 10 mg PO DAILY 30 Days #30 tablet Metformin HCl [Glucophage 500 mg Tablet] 500 mg PO BIDBS 30 Days #60 tablet Home Medications: Amlodipine Besylate [Norvasc 5 mg Tablet] 5 mg PO DAILY 30 Days #30 tablet 10/21/18 Atorvastatin Calcium [Lipitor 40 mg Tablet] 40 mg PO QHS 30 Days #30 tablet 10/21/18 Hum Insulin NPH/Reg Insulin Hm [Insulin 70-30 (NPH/Reg) 100 unit/mL] 26 unit SUBCUT BIDACBS 30 Days #5 unit 10/21/18 Lisinopril [Prinivil 10 mg Tablet] 10 mg PO DAILY 30 Days #30 tablet 10/21/18 Metformin HCl [Glucophage 500 mg Tablet] 500 mg PO BIDBS 30 Days #60 tablet 0 10/21/18 History of Present Illness History of Present Illness: BEATRIZ ZACARIAS is a 53 year old male who has history of diabetes and takes 500 mg metformin. Patient presents emergency room due to acute onset of generalized weakness, polydipsia, polyuria, nausea vomiting and nonspecific abdominal pain. This started about 2 weeks ago and has been progressive. He also suffered several pounds weight loss. In the emergency room his glucose was 933. PH was 7.29, anion gap 25 and bicarb is 18. Patient started on insulin drip and IV fluids. His potassium was also elevated at 6.9. Hospital Course Hospital Course: (1) Diabetes Better controlled but not optimized. He had to be switched to 70/30 as he could to afford other forms of insulin for financial reasons. His metformin was restarted. Continued on accu-Chek, diabetic diet, sliding scale insulin. Diabetic education was provided. Appointment with Dr. Vaibhav Streeter was made. (2) Hyperlipidemia High intensity statins. Follow-up with PCP (3) DKA (diabetic ketoacidoses) Resolved. Started on DKA protocol. Anion gap 9. Switched to subcutaneous insulin. (4) HTN (hypertension) Controlled. On amlodipine and JACKSON inhibitors. Was advised to follow-up with PCP for adjustment of his meds. Physical Exam Vital Signs: Temp Pulse Resp BP Pulse Ox 98.1 F 96 17 128/68 H 100 10/21/18 17:23 10/21/18 17:23 10/21/18 17:23 10/21/18 17:23 10/21/18 17:23 Intake & Output 10/22/18 10/23/18 10/24/18 06:59 06:59 06:59 Intake Total 831 Balance 831 General appearance: PRESENT: no acute distress, well-developed, well-nourished Head exam: PRESENT: atraumatic, normocephalic Eye exam: PRESENT: conjunctiva pink, EOMI, PERRLA. ABSENT: scleral icterus Neck exam: ABSENT: carotid bruit, JVD, lymphadenopathy, thyromegaly Respiratory exam: PRESENT: clear to auscultation jeannine. ABSENT: rales, rhonchi, wheezes Cardiovascular exam: PRESENT: RRR. ABSENT: diastolic murmur, rubs, systolic murmur Pulses: PRESENT: normal dorsalis pedis pul GI/Abdominal exam: PRESENT: normal bowel sounds, soft. ABSENT: distended, guarding, mass, organolmegaly, rebound, tenderness Extremities exam: PRESENT: full ROM. ABSENT: calf tenderness, clubbing, pedal edema Neurological exam: PRESENT: alert, awake, oriented to person, oriented to place, oriented to time, oriented to situation, CN II-XII grossly intact. ABSENT: motor sensory deficit Psychiatric exam: PRESENT: appropriate affect, normal mood. ABSENT: homicidal ideation, suicidal ideation Skin exam: PRESENT: dry, intact, warm. ABSENT: cyanosis, rash Results Laboratory Results: 10/20/18 04:26 10/20/18 04:26 Qualifiers - * PATIENT BEING DISCHARGED WITH ANY OF THE FOLLOWING DIAGNOSIS: No
== END 2018-10-21 18:27 | disposition home or self-care (01) | DRG 639 ==
LOC: ER 12:10 → OBSVTOIN 15:37 → EH 15:37 → INTOOBSV 15:37 → ICU 17:11 → 4W 10-20 05:00
PROVIDERS: ADMIT Internal Medicine; ATTEND Internal Medicine
DX: E11.10 Type 2 diabetes mellitus with ketoacidosis without coma (principal); E87.5 Hyperkalemia; E86.0 Dehydration; I10 Essential (primary) hypertension; R00.0 Tachycardia, unspecified; E78.5 Hyperlipidemia, unspecified; Z87.891 Personal history of nicotine dependence; Z79.84 Long term (current) use of oral hypoglycemic drugs
CPT/HCPCS: 36415; 80048; 80053; 80061; 80307; 81001; 82803; 82962; 83036; 83605; 83690; 83735; 85025; 85027; 93005; 93010; 96361; 96374; 99285; J1650; J1815; J2270; J2405; J3490; J7030; S0028